=== PATIENT | female | born 1985 | race Asian ===

== ENCOUNTER 2016-10-05 11:30 | Emergency (ER) | payer OTHER ==
[~2016-10-05] VITALS: Ht 160 cm; Wt 85.0 kg
[~2016-10-05 11:30] MED LIST: OXYC1SOL5 PO; PREN1TAB30
[2016-10-05 11:31] VITALS: BP 143/97; PULSE 75; RESP 16; TEMP 97.8; O2SAT 95
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
[2016-10-05] MEDS ORDERED: IBUPROFEN 600 MG TAB PO ONE (12:30)
[2016-10-05] MEDS ORDERED: IBUP-232 PO (12:47)
== END 2016-10-05 12:57 | disposition home or self-care (01) ==
LOC: NEPB 11:30
DX: M54.5 Low back pain (principal); M54.2 Cervicalgia; V43.52XA Car driver injured in collision with other type car in traffic accident, initial encounter; Y93.9 Activity, unspecified; Y92.9 Unspecified place or not applicable; Y99.9 Unspecified external cause status
CPT/HCPCS: 99283